=== PATIENT | female | born 1935 | race African-American/Black ===

== ENCOUNTER 2021-04-12 17:14 | Emergency (ER) | payer MEDICAID, OTHER ==
[~2021-04-12] VITALS: Ht 149.9 cm; Wt 41.0 kg
[2021-04-12 18:06] LABS: CLARITY URINE CLEAR (CLEAR); COLOR URINE YELLOW (YELLOW); KETONES URINE NEGATIVE (NEGATIVE); LEUKOCYTE ESTERASE URINE NEGATIVE (NEGATIVE); NITRITE URINE NEGATIVE (NEGATIVE); OCCULT BLOOD URINE 3+ (NEGATIVE); PROTEIN URINE 3+ (NEGATIVE); SPECIFIC GRAVITY URINE 1.014 (1.005-1.030); UROBILINOGEN URINE 0.2 E.U./dL (0.2-1.0)
[2021-04-12 18:41] LABS: HEMOGLOBIN. 12.4 g/dL (12.0-16.0); MEAN CORPUSCULAR HEMOGLOBIN 27.5 pg (28.0-32.0); MEAN PLATELET VOLUME 9.6 fl (7.4-10.4); PLATELET 235 x1000/uL (130-400); RED BLOOD CELL COUNT 4.52 mill/uL (4.2-5.4); RED CELL DISTRIBUTION WIDTH 13.7 % (11.6-14.6)
[2021-04-12 18:50] LABS: CHLORIDE 108 mEq/L (98-107)
[2021-04-12 18:51] LABS: INR 0.9; PROTHROMBIN TIME 10.2 sec (9.6-11.0)
[2021-04-12] MEDS ORDERED: HYDRALAZINE 20MG/ML VIAL IV ONE (19:00)
[2021-04-12 19:06] LABS: PLATELET ESTIMATE NORMAL
[2021-04-12 19:45] VITALS: BP 170/74
== END 2021-04-12 19:29 | disposition short-term general hospital (02) ==
LOC: ER 17:14
DX: T14.8XXA Other injury of unspecified body region, initial encounter (principal); I24.9 Acute ischemic heart disease, unspecified; R53.1 Weakness; M54.30 Sciatica, unspecified side; F03.90 Unspecified dementia, unspecified severity, without behavioral disturbance, psychotic disturbance, mood disturbance, and anxiety; I11.0 Hypertensive heart disease with heart failure; I50.9 Heart failure, unspecified; W01.0XXA Fall on same level from slipping, tripping and stumbling without subsequent striking against object, initial encounter; Y93.89 Activity, other specified; Y92.018 Other place in single-family (private) house as the place of occurrence of the external cause
CPT/HCPCS: 36415; 70450; 71045; 72125; 80053; 81003; 84484; 85025; 85610; 93005; 96374; 99285; J0360; Z7610